=== PATIENT | male | born 1955 | race Caucasian/White ===

== ENCOUNTER 2018-02-23 12:31 | Inpatient (IN) | payer OTHER ==
[2018-02-23] MEDS ORDERED: MAGNESIUM HYDROXIDE 30ML CUP PO (14:30)
[2018-02-23] MEDS ORDERED: ACETAMINOPHEN 650 MG SUPP PR (14:30)
[2018-02-23] MEDS ORDERED: ALPRAZOLAM 1 MG TAB PO (14:30)
[2018-02-23] MEDS ORDERED: GLUCAGON 1 MG INJ IM (14:30)
[2018-02-23] MEDS ORDERED: DEXTROSE 50% 50 ML SYRINGE IV ×2 (14:30)
[2018-02-23] MEDS ORDERED: NACL 0.9% 3 ML SYG IV (14:30)
[2018-02-23] MEDS ORDERED: GLUCOSE GEL 15 GRAM TUBE BUCCAL (14:30)
[2018-02-23] MEDS ORDERED: ACETAMINOPHEN 325 MG TAB PO (14:30)
[2018-02-23] MEDS ORDERED: BISACODYL 10 MG SUPP PR (14:30)
[2018-02-23] MEDS ORDERED: GLUCOSE GEL 15 GRAM TUBE PO ×2 (14:30)
[2018-02-23] MEDS: SOD CHLORIDE 0.9% 1,000 ML IV (14:32)
[2018-02-23] MEDS ORDERED: NITROGLYCERIN 50 MG/D5W (PMX) 250 ML IV (17:00)
[2018-02-23] MEDS: metFORMIN 500 MG TAB PO (17:22)
[2018-02-23] MEDS: PANTOPRAZOLE (EC) 40 MG TAB PO (17:35)
[2018-02-23] MEDS: INSULIN ASPART [NOVOLOG] 3 ML PEN SC ×2 (17:35→21:00)
[2018-02-23 18:26] LABS: CREATINE KINASE 20 IU/L (23-200)
[2018-02-23 18:40] LABS: CK INDEX 1.9
[2018-02-23 18:45] LABS: CK-MB 0.38 ng/ml (0.0-2.4); TROPONIN-I < 0.012 ng/ml (0.00-0.12)
[2018-02-23] MEDS: ATORVASTATIN 20 MG TAB PO (21:15)
[2018-02-24 00:07] LABS: CREATINE KINASE 24 IU/L (23-200)
[2018-02-24 00:23] LABS: CK-MB 0.48 ng/ml (0.0-2.4); TROPONIN-I < 0.012 ng/ml (0.00-0.12)
[2018-02-24] MEDS: ACCU-CHEK XX (01:55)
[2018-02-24] MEDS: DEXTROSE 5%-0.45% NACL 1,000 ML IV ×2 (02:36→14:30)
[2018-02-24] MEDS: PANTOPRAZOLE (EC) 40 MG TAB PO ×2 (05:31→17:17)
[2018-02-24 05:45] LABS: HEMOGLOBIN A1C 5.8 % (0-5.9)
[2018-02-24 05:49] LABS: ALANINE AMINOTRANSFERASE 33 IU/L (13-69); ALBUMIN 2.9 g/dl (3.3-4.9); ALBUMIN/GLOBULIN RATIO 1.11; ALKALINE PHOSPHATASE 88 IU/L (42-121); ANION GAP 9 (8-16); ASPARTATE AMINO TRANSFERASE 23 IU/L (15-46); BILIRUBIN,INDIRECT 0.3 mg/dl (0-1.1); BILIRUBIN,TOTAL 0.3 mg/dl (0.2-1.3); BLOOD UREA NITROGEN 20 mg/dl (7-20); CALCIUM 8.9 mg/dl (8.4-10.2); CARBON DIOXIDE 29 mmol/L (21-31); CHLORIDE 110 mmol/L (97-110); CHOL/HDL RATIO 3.6 RATIO; CHOLESTEROL 141 mg/dl (100-200); GLUCOSE 94 mg/dl (70-220); HDL CHOLESTEROL 39 mg/dl (30-78); LDL CHOLESTEROL,CALCULATED 77 mg/dl; MAGNESIUM 1.8 mg/dl (1.7-2.5); PHOSPHORUS 3.5 mg/dl (2.5-4.9); POTASSIUM 4.4 mmol/L (3.5-5.1); SODIUM 144 mmol/L (135-144); TOTAL PROTEIN 5.5 g/dl (6.1-8.1); TRIGLYCERIDES 127 mg/dl (0-149)
[2018-02-24 05:55] LABS: FREE THYROXINE INDEX (Calc) 2.53 ug/ml (0.65-3.89); T3 UPTAKE 39.5 % (23.5-40.5); T4 (THYROXINE) 6.4 ug/dl (5.5-11.0)
[2018-02-24] MEDS: metFORMIN 500 MG TAB PO ×2 (07:35→17:16)
[2018-02-24] MEDS: METOPROLOL 25 MG TAB PO (09:00)
[2018-02-24] MEDS ORDERED: INSULIN ASPART [NOVOLOG] 3 ML PEN SC ×3 (09:00→11:05)
[2018-02-24] MEDS: MULTIVITAMINS THERAPEUTIC TAB PO (09:20)
[2018-02-24] MEDS: ESCITALOPRAM 10 MG TAB PO (09:20)
[2018-02-24] MEDS: LISINOPRIL 10 MG TAB PO (09:21)
[2018-02-24 10:31] LABS: ADD MAN DIFF? NO
[2018-02-24 10:37] LABS: BASOPHIL # 0.1 10^3/ul (0.0-0.1); BASOPHILS % 1.3 % (0.0-2.0); EOSINOPHILS # 0.2 10^3/ul (0.0-0.5); EOSINOPHILS % 3.9 % (0.0-7.0); HEMATOCRIT 36.4 % (42.0-52.0); HEMOGLOBIN 11.7 g/dl (14.0-18.0); LYMPHOCYTES # 1.2 10^3/ul (0.8-2.9); LYMPHOCYTES % 31.5 % (15.0-51.0); MEAN CORPUSCULAR HEMOGLOBIN 30.8 pg (29.0-33.0); MEAN CORPUSCULAR HGB CONC 32.1 g/dl (32.0-37.0); MEAN CORPUSCULAR VOLUME 95.8 fl (82.0-101.0); MEAN PLATELET VOLUME 10.5 fl (7.4-10.4); MONOCYTE # 0.3 10^3/ul (0.3-0.9); MONOCYTES % 8.5 % (0.0-11.0); NEUTROPHIL # 2.1 10^3/ul (1.6-7.5); NEUTROPHILS % 54.5 % (39.0-77.0); PLATELET COUNT 214 10^3/UL (140-415); RED CELL DISTRIBUTION WIDTH 12.9 % (11.5-14.5)
[2018-02-24 10:37] LABS: WHITE BLOOD COUNT 3.9 10^3/ul (4.8-10.8)
[2018-02-24 10:54] LABS: LIPASE 263 U/L (23-300)
[2018-02-24] MEDS: AMLODIPINE 10 MG TAB PO (12:05)
[2018-02-24] MEDS: Insulin NOVOLOG SS MILD Algorithm (SS with meals and bedtime) SC ×2 (12:05→17:18)
[2018-02-24] MEDS ORDERED: ALPRAZOLAM 0.5 MG TAB PO (16:00)
[2018-02-24] MEDS: ALPRAZOLAM 0.25 MG TAB PO (16:05)
[2018-02-24] MEDS ORDERED: Insulin NOVOLOG SS MILD Algorithm (SS with meals and bedtime) SC (17:05)
[2018-02-24] MEDS: DOCUSATE SODIUM 100 MG CAP PO (17:17)
[2018-02-24] MEDS: ATORVASTATIN 20 MG TAB PO (21:04)
[2018-02-24] MEDS: BUSPIRONE 5 MG TAB PO (21:04)
[2018-02-25] MEDS: ALPRAZOLAM 0.25 MG TAB PO ×2 (01:01→10:09)
[2018-02-25] MEDS: ACCU-CHEK XX (01:54)
[2018-02-25] MEDS: PANTOPRAZOLE (EC) 40 MG TAB PO ×2 (05:48→17:33)
[2018-02-25 05:50] LABS: ADD MAN DIFF? NO
[2018-02-25 05:53] LABS: WHITE BLOOD COUNT 5.2 10^3/ul (4.8-10.8)
[2018-02-25 05:53] LABS: BASOPHIL # 0.1 10^3/ul (0.0-0.1); EOSINOPHILS # 0.1 10^3/ul (0.0-0.5); EOSINOPHILS % 2.3 % (0.0-7.0); HEMATOCRIT 36.8 % (42.0-52.0); HEMOGLOBIN 12.1 g/dl (14.0-18.0); LYMPHOCYTES % 20.2 % (15.0-51.0); MEAN CORPUSCULAR HEMOGLOBIN 30.6 pg (29.0-33.0); MEAN CORPUSCULAR HGB CONC 32.9 g/dl (32.0-37.0); MEAN CORPUSCULAR VOLUME 93.2 fl (82.0-101.0); MEAN PLATELET VOLUME 10.4 fl (7.4-10.4); MONOCYTE # 0.3 10^3/ul (0.3-0.9); MONOCYTES % 6.2 % (0.0-11.0); NEUTROPHIL # 3.6 10^3/ul (1.6-7.5); NEUTROPHILS % 70.1 % (39.0-77.0); PLATELET COUNT 228 10^3/UL (140-415); RED BLOOD COUNT 3.95 10^6/ul (4.70-6.10)
[2018-02-25 06:26] LABS: ANION GAP 10 (8-16); BLOOD UREA NITROGEN 21 mg/dl (7-20); CALCIUM 9.1 mg/dl (8.4-10.2); CARBON DIOXIDE 28 mmol/L (21-31); CHLORIDE 111 mmol/L (97-110); CREATININE 1.62 mg/dl (0.61-1.24); GLUCOSE 86 mg/dl (70-220); POTASSIUM 4.5 mmol/L (3.5-5.1); SODIUM 144 mmol/L (135-144)
[2018-02-25] MEDS: Insulin NOVOLOG SS MILD Algorithm (SS with meals and bedtime) SC (07:05)
[2018-02-25] MEDS: metFORMIN 500 MG TAB PO ×2 (07:30→17:33)
[2018-02-25] MEDS: ESCITALOPRAM 10 MG TAB PO (08:41)
[2018-02-25] MEDS: BUSPIRONE 5 MG TAB PO ×2 (08:41→21:02)
[2018-02-25] MEDS: DOCUSATE SODIUM 100 MG CAP PO (08:41)
[2018-02-25] MEDS: AMLODIPINE 10 MG TAB PO (08:42)
[2018-02-25] MEDS: MULTIVITAMINS THERAPEUTIC TAB PO (08:42)
[2018-02-25] MEDS: LISINOPRIL 10 MG TAB PO (08:42)
[2018-02-25] MEDS: METOPROLOL 25 MG TAB PO (08:43)
[2018-02-25] MEDS: INSULIN ASPART [NOVOLOG] 3 ML PEN SC ×3 (12:20→21:00)
[2018-02-25 12:50] LABS: ALANINE AMINOTRANSFERASE 30 IU/L (13-69); ALBUMIN 3.3 g/dl (3.3-4.9); ALBUMIN/GLOBULIN RATIO 1.13; ALKALINE PHOSPHATASE 95 IU/L (42-121); ANION GAP 14 (8-16); ASPARTATE AMINO TRANSFERASE 22 IU/L (15-46); BILIRUBIN,INDIRECT 0.1 mg/dl (0-1.1); BILIRUBIN,TOTAL 0.1 mg/dl (0.2-1.3); BLOOD UREA NITROGEN 20 mg/dl (7-20); CARBON DIOXIDE 24 mmol/L (21-31); CHLORIDE 110 mmol/L (97-110); GLUCOSE 101 mg/dl (70-220); POTASSIUM 3.8 mmol/L (3.5-5.1); SODIUM 144 mmol/L (135-144); TOTAL PROTEIN 6.2 g/dl (6.1-8.1)
[2018-02-25] MEDS: ATORVASTATIN 20 MG TAB PO (21:02)
[2018-02-26] MEDS: ALPRAZOLAM 0.25 MG TAB PO ×2 (01:49→09:18)
[2018-02-26] MEDS: ACCU-CHEK XX (01:54)
[2018-02-26] MEDS: PANTOPRAZOLE (EC) 40 MG TAB PO ×2 (05:44→17:08)
[2018-02-26] MEDS: INSULIN ASPART [NOVOLOG] 3 ML PEN SC ×4 (07:05→20:50)
[2018-02-26] MEDS: metFORMIN 500 MG TAB PO ×2 (07:50→17:08)
[2018-02-26] MEDS: BUSPIRONE 5 MG TAB PO ×2 (08:37→20:48)
[2018-02-26] MEDS: METOPROLOL 25 MG TAB PO (08:37)
[2018-02-26] MEDS: AMLODIPINE 10 MG TAB PO (08:37)
[2018-02-26] MEDS: LISINOPRIL 10 MG TAB PO (08:37)
[2018-02-26] MEDS: MULTIVITAMINS THERAPEUTIC TAB PO (08:38)
[2018-02-26] MEDS: ESCITALOPRAM 10 MG TAB PO (08:38)
[2018-02-26] MEDS: MECLIZINE 25 MG TAB PO (11:55)
[2018-02-26] MEDS: ATORVASTATIN 20 MG TAB PO (20:48)
[2018-02-27] MEDS: ACCU-CHEK XX (02:00)
[2018-02-27] MEDS: ONDANSETRON 4 MG INJ IV (03:51)
[2018-02-27] MEDS: morphine 2 MG INJ IV (03:53)
[2018-02-27] MEDS: PANTOPRAZOLE (EC) 40 MG TAB PO ×2 (05:33→18:10)
[2018-02-27] MEDS: INSULIN ASPART [NOVOLOG] 3 ML PEN SC ×4 (07:05→21:00)
[2018-02-27] MEDS: metFORMIN 500 MG TAB PO ×2 (08:34→18:10)
[2018-02-27] MEDS: AMLODIPINE 10 MG TAB PO (09:00)
[2018-02-27] MEDS: METOPROLOL 25 MG TAB PO (09:00)
[2018-02-27] MEDS: BUSPIRONE 5 MG TAB PO ×2 (10:22→21:46)
[2018-02-27] MEDS: LISINOPRIL 10 MG TAB PO (10:23)
[2018-02-27] MEDS: MULTIVITAMINS THERAPEUTIC TAB PO (10:33)
[2018-02-27] MEDS: ESCITALOPRAM 10 MG TAB PO (10:34)
[2018-02-27] MEDS: ALPRAZOLAM 0.25 MG TAB PO ×3 (13:02→21:53)
[2018-02-27] MEDS: HYDROCODONE/APAP (5/325) TAB PO (13:03)
[2018-02-27] MEDS: ATORVASTATIN 20 MG TAB PO (21:46)
[2018-02-28] MEDS: ACCU-CHEK XX (02:00)
[2018-02-28] MEDS: ZOLPIDEM 5 MG TAB PO (02:15)
[2018-02-28] MEDS: PANTOPRAZOLE (EC) 40 MG TAB PO ×2 (06:31→17:11)
[2018-02-28] MEDS: INSULIN ASPART [NOVOLOG] 3 ML PEN SC ×4 (07:30→21:00)
[2018-02-28] MEDS: morphine 2 MG INJ IV (08:37)
[2018-02-28] MEDS: LISINOPRIL 10 MG TAB PO (08:38)
[2018-02-28] MEDS: METOPROLOL 25 MG TAB PO (08:38)
[2018-02-28] MEDS: metFORMIN 500 MG TAB PO ×2 (08:38→17:10)
[2018-02-28] MEDS: BUSPIRONE 5 MG TAB PO ×2 (08:38→21:15)
[2018-02-28] MEDS: MULTIVITAMINS THERAPEUTIC TAB PO (08:38)
[2018-02-28] MEDS: AMLODIPINE 10 MG TAB PO (08:39)
[2018-02-28] MEDS: ESCITALOPRAM 10 MG TAB PO (08:39)
[2018-02-28] MEDS: HYDROCODONE/APAP (5/325) TAB PO ×3 (09:53→18:33)
[2018-02-28] MEDS: MECLIZINE 25 MG TAB PO ×3 (12:13→22:15)
[2018-02-28] MEDS: ATORVASTATIN 20 MG TAB PO (21:15)
[2018-03-01] MEDS: HYDROCODONE/APAP (5/325) TAB PO ×4 (01:34→20:58)
[2018-03-01] MEDS: ACCU-CHEK XX (01:46)
[2018-03-01] MEDS: PANTOPRAZOLE (EC) 40 MG TAB PO ×2 (05:28→17:38)
[2018-03-01 06:25] LABS: ADD MAN DIFF? NO
[2018-03-01 06:29] LABS: WHITE BLOOD COUNT 6.9 10^3/ul (4.8-10.8)
[2018-03-01 06:29] LABS: BASOPHIL # 0.1 10^3/ul (0.0-0.1); BASOPHILS % 0.7 % (0.0-2.0); EOSINOPHILS # 0.3 10^3/ul (0.0-0.5); HEMATOCRIT 38.2 % (42.0-52.0); HEMOGLOBIN 12.5 g/dl (14.0-18.0); LYMPHOCYTES # 1.7 10^3/ul (0.8-2.9); LYMPHOCYTES % 24.5 % (15.0-51.0); MEAN CORPUSCULAR HEMOGLOBIN 30.6 pg (29.0-33.0); MEAN CORPUSCULAR HGB CONC 32.7 g/dl (32.0-37.0); MEAN CORPUSCULAR VOLUME 93.4 fl (82.0-101.0); MEAN PLATELET VOLUME 10.8 fl (7.4-10.4); MONOCYTE # 0.5 10^3/ul (0.3-0.9); MONOCYTES % 6.9 % (0.0-11.0); NEUTROPHIL # 4.3 10^3/ul (1.6-7.5); NEUTROPHILS % 62.8 % (39.0-77.0); PLATELET COUNT 206 10^3/UL (140-415); RED BLOOD COUNT 4.09 10^6/ul (4.70-6.10); RED CELL DISTRIBUTION WIDTH 12.9 % (11.5-14.5)
[2018-03-01 06:56] LABS: ANION GAP 14 (8-16); BLOOD UREA NITROGEN 48 mg/dl (7-20); CALCIUM 9.2 mg/dl (8.4-10.2); CARBON DIOXIDE 27 mmol/L (21-31); CHLORIDE 105 mmol/L (97-110); CREATININE 2.66 mg/dl (0.61-1.24); GLUCOSE 82 mg/dl (70-220); POTASSIUM 5.7 mmol/L (3.5-5.1); SODIUM 140 mmol/L (135-144)
[2018-03-01] MEDS: BUSPIRONE 5 MG TAB PO ×2 (08:22→20:58)
[2018-03-01] MEDS: INSULIN ASPART [NOVOLOG] 3 ML PEN SC ×4 (08:23→21:00)
[2018-03-01] MEDS: metFORMIN 500 MG TAB PO (08:23)
[2018-03-01] MEDS: MULTIVITAMINS THERAPEUTIC TAB PO (08:23)
[2018-03-01] MEDS: ESCITALOPRAM 10 MG TAB PO (08:23)
[2018-03-01] MEDS: AMLODIPINE 10 MG TAB PO (08:24)
[2018-03-01] MEDS: MECLIZINE 25 MG TAB PO ×3 (08:24→20:58)
[2018-03-01] MEDS: METOPROLOL 25 MG TAB PO (08:24)
[2018-03-01] MEDS: LISINOPRIL 10 MG TAB PO (09:38)
[2018-03-01 11:18] LABS: POTASSIUM 5.1 mmol/L (3.5-5.1)
[2018-03-01] MEDS: SOD CHLORIDE 0.9% 1,000 ML IV (11:52)
[2018-03-01 19:00] LABS: CREATINE KINASE < 20 IU/L (23-200)
[2018-03-01 19:25] LABS: ADD UMIC YES; UR ASCORBIC ACID NEGATIVE (NEGATIVE); UR BILIRUBIN (Dip) NEGATIVE (NEGATIVE); UR BLOOD (Dip) NEGATIVE (NEGATIVE); UR CLARITY CLEAR (CLEAR); UR COLOR YELLOW (YELLOW); UR GLUCOSE (Dip) NEGATIVE (NEGATIVE); UR KETONES (Dip) NEGATIVE (NEGATIVE); UR LEUKOCYTE ESTERASE (Dip) NEGATIVE Leu/ul (NEGATIVE); UR NITRITE (Dip) NEGATIVE (NEGATIVE); UR RBC 1 /HPF (0-5); UR SPECIFIC GRAVITY (Dip) 1.013 (1.003-1.030); UR TOTAL PROTEIN (Dip) 1+ mg/dl (NEGATIVE); UR UROBILINOGEN (Dip) NEGATIVE (NEGATIVE); UR WBC 1 /HPF (0-5)
[2018-03-01 19:30] LABS: SODIUM,URINE RANDOM 18 mmol/L (30-90)
[2018-03-01] MEDS: ATORVASTATIN 20 MG TAB PO (20:58)
[2018-03-02] MEDS: ACCU-CHEK XX (02:00)
[2018-03-02] MEDS: SOD CHLORIDE 0.9% 1,000 ML IV ×2 (02:47→17:24)
[2018-03-02] MEDS: HYDROCODONE/APAP (5/325) TAB PO ×3 (02:47→17:55)
[2018-03-02 05:35] LABS: ADD MAN DIFF? NO
[2018-03-02 05:45] LABS: BASOPHIL # 0.1 10^3/ul (0.0-0.1); BASOPHILS % 0.7 % (0.0-2.0); EOSINOPHILS # 0.3 10^3/ul (0.0-0.5); EOSINOPHILS % 4.1 % (0.0-7.0); HEMATOCRIT 39.8 % (42.0-52.0); HEMOGLOBIN 13.2 g/dl (14.0-18.0); LYMPHOCYTES # 1.4 10^3/ul (0.8-2.9); LYMPHOCYTES % 18.4 % (15.0-51.0); MEAN CORPUSCULAR HEMOGLOBIN 30.9 pg (29.0-33.0); MEAN CORPUSCULAR HGB CONC 33.2 g/dl (32.0-37.0); MEAN CORPUSCULAR VOLUME 93.2 fl (82.0-101.0); MEAN PLATELET VOLUME 10.5 fl (7.4-10.4); MONOCYTE # 0.6 10^3/ul (0.3-0.9); MONOCYTES % 7.6 % (0.0-11.0); NEUTROPHIL # 5.2 10^3/ul (1.6-7.5); NEUTROPHILS % 68.9 % (39.0-77.0); PLATELET COUNT 190 10^3/UL (140-415); RED BLOOD COUNT 4.27 10^6/ul (4.70-6.10); RED CELL DISTRIBUTION WIDTH 12.6 % (11.5-14.5)
[2018-03-02 05:45] LABS: WHITE BLOOD COUNT 7.5 10^3/ul (4.8-10.8)
[2018-03-02] MEDS: PANTOPRAZOLE (EC) 40 MG TAB PO ×2 (05:51→17:24)
[2018-03-02 06:05] LABS: ANION GAP 18 (8-16); BLOOD UREA NITROGEN 57 mg/dl (7-20); CARBON DIOXIDE 22 mmol/L (21-31); CHLORIDE 106 mmol/L (97-110); CREATININE 2.45 mg/dl (0.61-1.24); GLUCOSE 91 mg/dl (70-220); POTASSIUM 5.1 mmol/L (3.5-5.1); SODIUM 141 mmol/L (135-144)
[2018-03-02 06:14] LABS: PHOSPHORUS 4.1 mg/dl (2.5-4.9)
[2018-03-02] MEDS: INSULIN ASPART [NOVOLOG] 3 ML PEN SC ×4 (07:30→20:57)
[2018-03-02] MEDS: ALPRAZOLAM 0.25 MG TAB PO (08:22)
[2018-03-02] MEDS: BUSPIRONE 5 MG TAB PO ×2 (09:07→20:55)
[2018-03-02] MEDS: ESCITALOPRAM 10 MG TAB PO (09:07)
[2018-03-02] MEDS: MECLIZINE 25 MG TAB PO ×3 (09:07→20:55)
[2018-03-02] MEDS: AMLODIPINE 10 MG TAB PO (09:07)
[2018-03-02] MEDS: METOPROLOL 25 MG TAB PO (09:08)
[2018-03-02] MEDS: MULTIVITAMINS THERAPEUTIC TAB PO (09:08)
[2018-03-02] MEDS: ATORVASTATIN 20 MG TAB PO (20:55)
[2018-03-02] MEDS: HEPARIN 5,000 UNIT/0.5 ML VIAL SC (20:56)
[2018-03-03] MEDS: HYDROCODONE/APAP (5/325) TAB PO ×4 (00:47→20:35)
[2018-03-03] MEDS: SOD CHLORIDE 0.9% 1,000 ML IV ×2 (00:51→02:08)
[2018-03-03] MEDS: ACCU-CHEK XX (02:00)
[2018-03-03 06:04] LABS: ADD MAN DIFF? NO
[2018-03-03] MEDS: PANTOPRAZOLE (EC) 40 MG TAB PO ×2 (06:08→17:54)
[2018-03-03 06:17] LABS: BASOPHILS % 0.6 % (0.0-2.0); EOSINOPHILS # 0.3 10^3/ul (0.0-0.5); EOSINOPHILS % 5.6 % (0.0-7.0); HEMATOCRIT 37.4 % (42.0-52.0); HEMOGLOBIN 12.3 g/dl (14.0-18.0); LYMPHOCYTES # 1.5 10^3/ul (0.8-2.9); LYMPHOCYTES % 29.3 % (15.0-51.0); MEAN CORPUSCULAR HGB CONC 32.9 g/dl (32.0-37.0); MEAN CORPUSCULAR VOLUME 94.2 fl (82.0-101.0); MEAN PLATELET VOLUME 10.5 fl (7.4-10.4); MONOCYTE # 0.4 10^3/ul (0.3-0.9); MONOCYTES % 7.6 % (0.0-11.0); NEUTROPHIL # 2.8 10^3/ul (1.6-7.5); NEUTROPHILS % 56.5 % (39.0-77.0); PLATELET COUNT 166 10^3/UL (140-415); RED BLOOD COUNT 3.97 10^6/ul (4.70-6.10); RED CELL DISTRIBUTION WIDTH 12.6 % (11.5-14.5)
[2018-03-03 06:28] LABS: MAGNESIUM 1.2 mg/dl (1.7-2.5)
[2018-03-03 06:28] LABS: PHOSPHORUS 3.7 mg/dl (2.5-4.9)
[2018-03-03 06:30] LABS: ANION GAP 13 (8-16); BLOOD UREA NITROGEN 51 mg/dl (7-20); CALCIUM 9.3 mg/dl (8.4-10.2); CARBON DIOXIDE 26 mmol/L (21-31); CHLORIDE 112 mmol/L (97-110); CREATININE 1.87 mg/dl (0.61-1.24); GLUCOSE 104 mg/dl (70-220); POTASSIUM 5.4 mmol/L (3.5-5.1); SODIUM 146 mmol/L (135-144)
[2018-03-03] MEDS: INSULIN ASPART [NOVOLOG] 3 ML PEN SC ×4 (07:30→20:36)
[2018-03-03] MEDS: MECLIZINE 25 MG TAB PO ×3 (08:52→20:37)
[2018-03-03] MEDS: BUSPIRONE 5 MG TAB PO ×2 (08:52→20:37)
[2018-03-03] MEDS: AMLODIPINE 10 MG TAB PO (08:52)
[2018-03-03] MEDS: ESCITALOPRAM 10 MG TAB PO (08:52)
[2018-03-03] MEDS: MULTIVITAMINS THERAPEUTIC TAB PO (08:52)
[2018-03-03] MEDS: METOPROLOL 25 MG TAB PO (08:53)
[2018-03-03] MEDS: HEPARIN 5,000 UNIT/0.5 ML VIAL SC ×2 (08:53→20:38)
[2018-03-03] MEDS: ALPRAZOLAM 0.25 MG TAB PO ×2 (10:14→18:22)
[2018-03-03] MEDS: MAGNESIUM OXIDE 400 MG TAB PO ×2 (12:19→20:36)
[2018-03-03] MEDS: NA POLYST SULFON 15 GM/60 ML BTL PO (12:19)
[2018-03-03] MEDS: SOD CHLORIDE 0.45% 1,000 ML IV (12:26)
[2018-03-03] MEDS ORDERED: MAGNESIUM OXIDE 400 MG TAB PO (12:30)
[2018-03-03] MEDS ORDERED: morphine LIQ (10 MG/5 ML) CUP PO (18:00)
[2018-03-03] MEDS: ATORVASTATIN 20 MG TAB PO (20:36)
[2018-03-04] MEDS: ACCU-CHEK XX (01:32)
[2018-03-04] MEDS: SOD CHLORIDE 0.45% 1,000 ML IV (02:52)
[2018-03-04] MEDS: HYDROCODONE/APAP (5/325) TAB PO ×3 (05:39→18:34)
[2018-03-04] MEDS: PANTOPRAZOLE (EC) 40 MG TAB PO ×2 (05:39→17:44)
[2018-03-04 07:23] LABS: ADD MAN DIFF? NO
[2018-03-04] MEDS: INSULIN ASPART [NOVOLOG] 3 ML PEN SC ×4 (07:30→21:00)
[2018-03-04 07:36] LABS: BASOPHIL # 0.1 10^3/ul (0.0-0.1); BASOPHILS % 0.8 % (0.0-2.0); EOSINOPHILS # 0.3 10^3/ul (0.0-0.5); EOSINOPHILS % 4.9 % (0.0-7.0); HEMATOCRIT 40.2 % (42.0-52.0); HEMOGLOBIN 13.2 g/dl (14.0-18.0); LYMPHOCYTES # 1.3 10^3/ul (0.8-2.9); LYMPHOCYTES % 21.2 % (15.0-51.0); MEAN CORPUSCULAR HEMOGLOBIN 30.8 pg (29.0-33.0); MEAN CORPUSCULAR HGB CONC 32.8 g/dl (32.0-37.0); MEAN CORPUSCULAR VOLUME 93.7 fl (82.0-101.0); MEAN PLATELET VOLUME 10.3 fl (7.4-10.4); MONOCYTE # 0.4 10^3/ul (0.3-0.9); MONOCYTES % 6.9 % (0.0-11.0); PLATELET COUNT 161 10^3/UL (140-415); RED BLOOD COUNT 4.29 10^6/ul (4.70-6.10); RED CELL DISTRIBUTION WIDTH 12.6 % (11.5-14.5)
[2018-03-04 07:36] LABS: WHITE BLOOD COUNT 6.1 10^3/ul (4.8-10.8)
[2018-03-04 07:49] LABS: PHOSPHORUS 3.1 mg/dl (2.5-4.9)
[2018-03-04 07:49] LABS: MAGNESIUM 1.1 mg/dl (1.7-2.5)
[2018-03-04 07:51] LABS: ANION GAP 12 (8-16); BLOOD UREA NITROGEN 36 mg/dl (7-20); CALCIUM 9.4 mg/dl (8.4-10.2); CARBON DIOXIDE 27 mmol/L (21-31); CHLORIDE 112 mmol/L (97-110); CREATININE 1.34 mg/dl (0.61-1.24); GLUCOSE 107 mg/dl (70-220); POTASSIUM 5.3 mmol/L (3.5-5.1); SODIUM 146 mmol/L (135-144)
[2018-03-04] MEDS: MULTIVITAMINS THERAPEUTIC TAB PO (08:36)
[2018-03-04] MEDS: ALPRAZOLAM 0.25 MG TAB PO ×2 (08:36→21:51)
[2018-03-04] MEDS: DOCUSATE SODIUM 100 MG CAP PO (08:36)
[2018-03-04] MEDS: MAGNESIUM OXIDE 400 MG TAB PO ×3 (08:36→21:03)
[2018-03-04] MEDS: MECLIZINE 25 MG TAB PO ×3 (08:36→21:03)
[2018-03-04] MEDS: ESCITALOPRAM 10 MG TAB PO (08:36)
[2018-03-04] MEDS: HEPARIN 5,000 UNIT/0.5 ML VIAL SC ×2 (08:37→21:04)
[2018-03-04] MEDS: AMLODIPINE 10 MG TAB PO (08:37)
[2018-03-04] MEDS: METOPROLOL 25 MG TAB PO (08:38)
[2018-03-04] MEDS: BUSPIRONE 5 MG TAB PO ×2 (10:22→21:04)
[2018-03-04] MEDS: NA POLYST SULFON 15 GM/60 ML BTL PO (11:18)
[2018-03-04] MEDS: DEXTROSE 5% 1,000 ML IV (11:20)
[2018-03-04] MEDS: MAGNESIUM SULFATE 3 GM in DEXTROSE 5% 100 ML IVPB (12:02)
[2018-03-04] MEDS: ATORVASTATIN 20 MG TAB PO (21:04)
[2018-03-05] MEDS: ACCU-CHEK XX (02:00)
[2018-03-05] MEDS: HYDROCODONE/APAP (5/325) TAB PO ×4 (04:57→23:12)
[2018-03-05 05:55] LABS: ADD MAN DIFF? NO
[2018-03-05] MEDS: PANTOPRAZOLE (EC) 40 MG TAB PO ×2 (06:02→17:32)
[2018-03-05 06:06] LABS: WHITE BLOOD COUNT 5.2 10^3/ul (4.8-10.8)
[2018-03-05 06:07] LABS: BASOPHILS % 0.4 % (0.0-2.0); EOSINOPHILS # 0.3 10^3/ul (0.0-0.5); EOSINOPHILS % 5.5 % (0.0-7.0); HEMOGLOBIN 12.5 g/dl (14.0-18.0); LYMPHOCYTES # 1.1 10^3/ul (0.8-2.9); LYMPHOCYTES % 20.3 % (15.0-51.0); MEAN CORPUSCULAR HEMOGLOBIN 30.4 pg (29.0-33.0); MEAN CORPUSCULAR HGB CONC 33.8 g/dl (32.0-37.0); MEAN PLATELET VOLUME 10.3 fl (7.4-10.4); MONOCYTE # 0.3 10^3/ul (0.3-0.9); MONOCYTES % 6.5 % (0.0-11.0); NEUTROPHIL # 3.5 10^3/ul (1.6-7.5); NEUTROPHILS % 66.9 % (39.0-77.0); PLATELET COUNT 176 10^3/UL (140-415); RED BLOOD COUNT 4.11 10^6/ul (4.70-6.10); RED CELL DISTRIBUTION WIDTH 12.7 % (11.5-14.5)
[2018-03-05 06:18] LABS: PHOSPHORUS 3.3 mg/dl (2.5-4.9)
[2018-03-05 06:18] LABS: MAGNESIUM 1.6 mg/dl (1.7-2.5)
[2018-03-05 06:22] LABS: ANION GAP 16 (8-16); BLOOD UREA NITROGEN 24 mg/dl (7-20); CALCIUM 8.8 mg/dl (8.4-10.2); CARBON DIOXIDE 27 mmol/L (21-31); CHLORIDE 106 mmol/L (97-110); CREATININE 1.19 mg/dl (0.61-1.24); GLUCOSE 125 mg/dl (70-220); POTASSIUM 3.9 mmol/L (3.5-5.1); SODIUM 145 mmol/L (135-144)
[2018-03-05] MEDS: MAGNESIUM SULFATE 2 GM/50 ML 50 ML IVPB (06:41)
[2018-03-05] MEDS: INSULIN ASPART [NOVOLOG] 3 ML PEN SC ×4 (07:30→20:23)
[2018-03-05] MEDS: ALPRAZOLAM 0.25 MG TAB PO ×2 (07:59→15:56)
[2018-03-05] MEDS: MECLIZINE 25 MG TAB PO ×3 (08:32→20:23)
[2018-03-05] MEDS: MULTIVITAMINS THERAPEUTIC TAB PO (08:32)
[2018-03-05] MEDS: AMLODIPINE 10 MG TAB PO (08:32)
[2018-03-05] MEDS: BUSPIRONE 5 MG TAB PO ×2 (08:32→20:23)
[2018-03-05] MEDS: METOPROLOL 25 MG TAB PO (08:32)
[2018-03-05] MEDS: ESCITALOPRAM 10 MG TAB PO (08:32)
[2018-03-05] MEDS: MAGNESIUM OXIDE 400 MG TAB PO ×3 (08:34→20:23)
[2018-03-05] MEDS: HEPARIN 5,000 UNIT/0.5 ML VIAL SC ×2 (08:34→20:25)
[2018-03-05] MEDS: ATORVASTATIN 20 MG TAB PO (20:23)
[2018-03-06] MEDS: ACCU-CHEK XX (01:09)
[2018-03-06] MEDS: ALPRAZOLAM 0.25 MG TAB PO ×2 (01:59→10:03)
[2018-03-06 05:55] LABS: ADD MAN DIFF? NO
[2018-03-06] MEDS: PANTOPRAZOLE (EC) 40 MG TAB PO (06:02)
[2018-03-06] MEDS: HYDROCODONE/APAP (5/325) TAB PO ×2 (06:04→12:05)
[2018-03-06 06:05] LABS: BASOPHILS % 0.5 % (0.0-2.0); EOSINOPHILS # 0.4 10^3/ul (0.0-0.5); EOSINOPHILS % 6.9 % (0.0-7.0); HEMOGLOBIN 12.2 g/dl (14.0-18.0); LYMPHOCYTES # 1.6 10^3/ul (0.8-2.9); LYMPHOCYTES % 28.3 % (15.0-51.0); MEAN CORPUSCULAR HEMOGLOBIN 30.6 pg (29.0-33.0); MEAN CORPUSCULAR VOLUME 92.7 fl (82.0-101.0); MEAN PLATELET VOLUME 10.2 fl (7.4-10.4); MONOCYTE # 0.4 10^3/ul (0.3-0.9); MONOCYTES % 7.5 % (0.0-11.0); NEUTROPHIL # 3.1 10^3/ul (1.6-7.5); NEUTROPHILS % 56.4 % (39.0-77.0); PLATELET COUNT 188 10^3/UL (140-415); RED BLOOD COUNT 3.99 10^6/ul (4.70-6.10); RED CELL DISTRIBUTION WIDTH 12.6 % (11.5-14.5)
[2018-03-06 06:05] LABS: WHITE BLOOD COUNT 5.5 10^3/ul (4.8-10.8)
[2018-03-06 06:36] LABS: ANION GAP 15 (8-16); BLOOD UREA NITROGEN 22 mg/dl (7-20); CALCIUM 8.9 mg/dl (8.4-10.2); CARBON DIOXIDE 30 mmol/L (21-31); CHLORIDE 106 mmol/L (97-110); CREATININE 1.34 mg/dl (0.61-1.24); GLUCOSE 107 mg/dl (70-220); POTASSIUM 4.2 mmol/L (3.5-5.1); SODIUM 147 mmol/L (135-144)
[2018-03-06 06:52] LABS: PHOSPHORUS 4.4 mg/dl (2.5-4.9)
[2018-03-06] MEDS: INSULIN ASPART [NOVOLOG] 3 ML PEN SC ×2 (07:30→11:30)
[2018-03-06] MEDS: MULTIVITAMINS THERAPEUTIC TAB PO (08:51)
[2018-03-06] MEDS: BUSPIRONE 5 MG TAB PO (08:51)
[2018-03-06] MEDS: MAGNESIUM OXIDE 400 MG TAB PO (08:51)
[2018-03-06] MEDS: MECLIZINE 25 MG TAB PO (08:51)
[2018-03-06] MEDS: ESCITALOPRAM 10 MG TAB PO (08:51)
[2018-03-06] MEDS: AMLODIPINE 10 MG TAB PO (08:52)
[2018-03-06] MEDS: METOPROLOL 25 MG TAB PO (08:52)
[2018-03-06] MEDS: HEPARIN 5,000 UNIT/0.5 ML VIAL SC (08:56)
[2018-03-06] MEDS: DEXTROSE 5% 1,000 ML IV (10:04)
== END 2018-03-06 13:05 | DRG 683 ==
LOC: PP2 02-27 19:20 → MS3 12:31
DX: N17.9 Acute kidney failure, unspecified (principal); F33.2 Major depressive disorder, recurrent severe without psychotic features; K59.00 Constipation, unspecified; E11.21 Type 2 diabetes mellitus with diabetic nephropathy; K74.60 Unspecified cirrhosis of liver; N18.3 Chronic kidney disease, stage 3 (moderate); E11.22 Type 2 diabetes mellitus with diabetic chronic kidney disease; E87.5 Hyperkalemia; R10.13 Epigastric pain; F10.20 Alcohol dependence, uncomplicated; R00.1 Bradycardia, unspecified; I12.9 Hypertensive chronic kidney disease with stage 1 through stage 4 chronic kidney disease, or unspecified chronic kidney disease; K21.9 Gastro-esophageal reflux disease without esophagitis; E78.5 Hyperlipidemia, unspecified; R07.89 Other chest pain; D63.1 Anemia in chronic kidney disease; E66.9 Obesity, unspecified; Z68.27 Body mass index [BMI] 27.0-27.9, adult; Z79.4 Long term (current) use of insulin; Z79.84 Long term (current) use of oral hypoglycemic drugs; Z59.0 Homelessness
CPT/HCPCS: 71045; 74176; 76775; 80048; 80053; 80061; 81001; 82550; 82553; 82962; 83036; 83690; 83735; 84100; 84132; 84300; 84436; 84443; 84479; 84484; 85025; 89190; 93306; 97110; 97116; 97163; 97530